=== PATIENT | male | born 1960 | race African-American/Black ===

== ENCOUNTER 2019-02-22 11:05 | Emergency (ER) | payer OTHER ==
[~2019-02-22] VITALS: Ht 182.9 cm; Wt 83.9 kg
[2019-02-22] MEDS ORDERED: NAPROSYN500 MG PO (12:23)
[2019-02-22 12:42] VITALS: BP 145/81
== END 2019-02-22 12:43 | disposition home or self-care (01) ==
LOC: ER 11:05
DX: M25.561 Pain in right knee (principal); F17.210 Nicotine dependence, cigarettes, uncomplicated; Z88.0 Allergy status to penicillin